=== PATIENT | male | born 1945 | race Caucasian/White ===

== ENCOUNTER 2016-10-15 12:02 | Emergency (ER) | payer OTHER ==
[2016-10-15 12:10] VITALS: RESP 20; TEMP 98.4
[2016-10-15] MEDS ORDERED: LET GEL TOPICAL 1 EA SYR TP ONE ×2 (12:44→12:47)
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
[2016-10-15 14:57] VITALS: BP 128/82; PULSE 74; O2SAT 94
== END 2016-10-15 14:40 | disposition home or self-care (01) ==
DX: S52.501A Unspecified fracture of the lower end of right radius, initial encounter for closed fracture (principal); Z79.82 Long term (current) use of aspirin; Z85.46 Personal history of malignant neoplasm of prostate; V18.2XXA Unspecified pedal cyclist injured in noncollision transport accident in nontraffic accident, initial encounter
CPT/HCPCS: 73110; 99283; A4565

== ENCOUNTER 2017-05-07 08:12 | Emergency (ER) | payer OTHER ==
[2017-05-07 08:20] VITALS: TEMP 97.5
--- NOTE | 2017-05-07 08:30 | EDPHY ---
HPI/HX/ROS/PE/MDM Narrative: CHIEF COMPLAINT: Blood in urine HPI: This patient is a 71 year old male with history of CLL and prostate cancer complaining of hematuria. He feels well, but noted dark blood in his urine this morning after waking. He denies dysuria, frequency, or urgency. He has not had hematuria in the past. No flank pain or fever, no cuts or trauma to his penis. The patient was previously anticoagulated (Plavix) but discontinued this one year ago due to frequent nosebleeds. He now takes 325mg PO Aspirin daily. He denies recent illness, and has no further complaints. REVIEW OF SYSTEMS: Aside from elements discussed in the HPI, a comprehensive 10-point review of systems was reviewed and is negative. PMH: 1. Chronic lymphocytic leukemia 2. History of prostate cancer 2009, treated with radiation 3. History of melanoma, surgical removal 4. TIA (2007) 5. Tonsillectomy 6. Retinal tear. SOCIAL HISTORY: Retired. Lives in [place]. . PHYSICAL EXAM: General:Patient is alert, in no acute distress. ENT:Eyes are normal to inspection. ENT inspection normal. Neck: Normal inspection. Full range of motion. Respiratory:No respiratory distress. Breath sounds normal bilaterally. Cardiovascular: Regular rate and rhythm. Strong peripheral pulses. Normal cap refill. Abdomen:The abdomen is nontender to palpation. There are no peritoneal signs. There are normal bowel sounds. Back: Normal to inspection. No tenderness to palpation. Skin: Normal color. No rash. Warm and dry. Extremities: Normal appearance. Full range of motion. Neuro: Oriented x3. Normal motor function. Normal sensory function. ED Course: 71 year old male with history of CLL and prostate cancer (treated with radiation only) presents for evaluation of hematuria. He is otherwise asymptomatic. Physical exam unremarkable, vitals within normal limits. Plan for labs including CBC, BMP, coag, and UA. UA confirms gross hematuria. Laboratory studies otherwise unremarkable. Elevated WBC of 40,000 is consistent with the patient's CLL and is consistent with his baseline WBC. 09:54 Discussed results with the patient. Plan to discharge home in good condition. He understands he needs to followup with urology within 72 hours for further evaluation. Return precautions discussed. He is comfortable with this plan. MDM: This patient presents with painless hematuria. Workup reveals no signs of acute kidney injury or UTI. The patient has no abdominal or flank pain to suggest kidney stone. Labs are consistent with baseline CLL abnormalities, and there are no signs of acute platelet or coagulation disturbance. The patient has no symptoms of urinary retention. He is appropriate for urgent outpatient workup with Urology. We discussed possibility of developing acute urinary retention and need for return to the ED. - Data Points Laboratory Results: Laboratory Results 05/07/17 08:48 05/07/17 08:48 05/07/17 05/07/17 05/07/17 08:48 08:48 08:48 WBC 41.78 10^3/uL H 10^3/uL (3.80-9.50) RBC 4.22 10^6/uL L 10^6/uL (4.40-6.38) Hgb 15.0 g/dL g/dL (13.7-17.5) Hct 44.3 % % (40.0-51.0) MCV 105.0 fL H fL (81.5-99.8) MCH 35.5 pg H pg (27.9-34.1) MCHC 33.9 g/dL g/dL (32.4-36.7) RDW 13.2 % % (11.5-15.2) Plt Count 125 10^3/uL L 10^3/uL (150-400) MPV 10.1 fL fL (8.7-11.7) Neut % (Auto) 6.7 % L % (39.3-74.2) Lymph % (Auto) 91.4 % H % (15.0-45.0) [place] % (Auto) 1.2 % L % (4.5-13.0) Eos % (Auto) 0.3 % L % (0.6-7.6) Baso % (Auto) 0.3 % % (0.3-1.7) Nucleat RBC Rel Count 0.0 % % (0.0-0.2) Absolute Neuts (auto) 2.82 10^3/uL 10^3/uL (1.70-6.50) Absolute Lymphs (auto) 38.17 10^3/uL H 10^3/uL (1.00-3.00) Absolute Monos (auto) 0.49 10^3/uL 10^3/uL (0.30-0.80) Absolute Eos (auto) 0.13 10^3/uL 10^3/uL (0.03-0.40) Absolute Basos (auto) 0.12 10^3/uL H 10^3/uL (0.02-0.10) Absolute Nucleated RBC 0.00 10^3/uL 10^3/uL (0-0.01) Immature Gran % 0.1 % % (0.0-1.1) Seg Neutrophils % 6 % % Lymphocytes % 91 % % Monocytes % 2 % % Eosinophils % 1 % % Basophils % 1 % % Immature Gran # 0.05 10^3/uL 10^3/uL (0.00-0.10) Absolute Seg Neuts 2.51 10^/uL 10^/uL (1.70-6.50) Absolute Lymphocytes 38.02 10^3/uL H 10^3/uL (1.00-3.00) Absolute Monocytes 0.84 10^3/uL H 10^3/uL (0.30-0.80) Absolute Eosinophils 0.42 10^3/uL H 10^3/uL (0.03-0.40) Absolute Basophils 0.42 10^3/uL H 10^3/uL (0.02-0.10) Differential Comment Atypical Lymphocytes 2+ H Smudge Cells 1+ H Platelet Estimate DECREASED L (ADEQ) Smear Review By Pending PT 14.1 SEC SEC (12.0-15.0) INR 1.07 (0.83-1.16) APTT 27.2 SEC SEC (23.0-38.0) Sodium 143 mEq/L mEq/L (134-144) Potassium 5.0 mEq/L mEq/L (3.5-5.2) Chloride 109 mEq/L mEq/L (97-110) Carbon Dioxide 23 mEq/l mEq/l (22-31) Anion Gap 11 mEq/L mEq/L (8-16) BUN 18 mg/dL mg/dL (7-23) Creatinine 0.8 mg/dL mg/dL (0.7-1.3) Estimated GFR > 60 Glucose 102 mg/dL H mg/dL (70-100) Calcium 9.3 mg/dL mg/dL (8.5-10.4) Urine Color Urine Appearance Urine pH Ur Specific [place] Urine Protein Urine Ketones Urine Blood Urine Nitrate Urine Bilirubin Urine Urobilinogen Ur Leukocyte Esterase Urine RBC Urine WBC Ur Epithelial Cells Urine Mucus Urine Glucose 05/07/17 08:20 WBC RBC Hgb Hct MCV MCH MCHC RDW Plt Count MPV Neut % (Auto) Lymph % (Auto) [place] % (Auto) Eos % (Auto) Baso % (Auto) Nucleat RBC Rel Count Absolute Neuts (auto) Absolute Lymphs (auto) Absolute Monos (auto) Absolute Eos (auto) Absolute Basos (auto) Absolute Nucleated RBC Immature Gran % Seg Neutrophils % Lymphocytes % Monocytes % Eosinophils % Basophils % Immature Gran # Absolute Seg Neuts Absolute Lymphocytes Absolute Monocytes Absolute Eosinophils Absolute Basophils Differential Comment Atypical Lymphocytes Smudge Cells Platelet Estimate Smear Review By PT INR APTT Sodium Potassium Chloride Carbon Dioxide Anion Gap BUN Creatinine Estimated GFR Glucose Calcium Urine Color RED Urine Appearance MODERATELY TURBID Urine pH 6.0 (5.0-7.5) Ur Specific [place] 1.021 (1.002-1.030) Urine Protein 2+ H (NEGATIVE) Urine Ketones NEGATIVE (NEGATIVE) Urine Blood 2+ H (NEGATIVE) Urine Nitrate NEGATIVE (NEGATIVE) Urine Bilirubin NEGATIVE (NEGATIVE) Urine Urobilinogen NEGATIVE EU EU (0.2-1.0) Ur Leukocyte Esterase NEGATIVE (NEGATIVE) Urine RBC 50-182 /hpf H /hpf (0-3) Urine WBC 5-10 /hpf H /hpf (0-3) Ur Epithelial Cells NONE SEEN /lpf /lpf (NONE-1+) Urine Mucus 2+ /lpf H /lpf (NONE-1+) Urine Glucose NEGATIVE (NEGATIVE) General Time Seen by Provider: 05/07/17 08:26 Initial Vital Signs: Initial Vital Signs Temperature (C) 36.4 C 05/07/17 08:18 Heart Rate 67 05/07/17 08:18 Respiratory Rate 17 05/07/17 08:18 Blood Pressure 130/67 H 05/07/17 08:18 O2 Sat (%) 94 05/07/17 08:18 O2 Delivery Mode Room Air Allergies/Adverse Reactions: No Known Allergies Allergy (Verified 05/07/17 08:17) Home Medications: Medication Instructions Recorded Cholecalciferol Vit D3 [Vitamin D3 2,000 units PO DAILY 08/16/15 2000 units (OTC)] Multivitamins [Tab-A-Flako] 1 each PO DAILY 08/16/15 [place]-3 Fatty Acids [Fish Oil] 1,000 mg PO DAILY 08/16/15 Atorvastatin Calcium 02/12/16 Aspirin 325 mg (*) 10/15/16 Tamsulosin HCl 10/15/16 Departure - Departure Disposition: Home, Routine, Self-Care Clinical Impression: Hematuria Condition: Good Instructions: Hematuria (ED) Additional Instructions: 1. Follow up with a urologist within 72 hours. 2. Return to the emergency department for fever, severe pain, inability to urinate or other concerns. Referrals: Crispin Salinas MD [Primary Care Provider] - As per Instructions Frederick Rivera MD [Medical Doctor] - As per Instructions Report Scribed for: Jamie Rothman Report Scribed by: Tana Wiseman Date of Report: 05/07/17 Time of Report: 08:30 Physician Review and Approval Statement: Portions of this note were transcribed by an ED scribe. I personally performed the history, physical exam, and medical decision making; and confirm the accuracy of the information in the transcribed note.
[2017-05-07 08:55] LABS: PLATELET COUNT 125 10^3/uL (150-400)
[2017-05-07 09:12] LABS: INR 1.07 (0.83-1.16); PROTIME(PATIENT) 14.1 SEC (12.0-15.0)
[2017-05-07 10:02] VITALS: BP 117/61; PULSE 58; RESP 18; O2SAT 98
== END 2017-05-07 10:04 | disposition home or self-care (01) ==
DX: R31.9 Hematuria, unspecified (principal); Z79.82 Long term (current) use of aspirin; Z85.46 Personal history of malignant neoplasm of prostate; Z85.6 Personal history of leukemia; Z85.828 Personal history of other malignant neoplasm of skin

== ENCOUNTER → 2017-05-18 | Outpatient (CLI) | payer OTHER ==
[~2017-05-18] MED LIST: IOPAMIDOL (ISOVUE-300) 100 ML BTL ONE
== END ==
LOC: FIMAGING 11:06
PROVIDERS: ATTEND Physician Assistant
DX: R31.0 Gross hematuria (principal); R30.0 Dysuria; K57.90 Diverticulosis of intestine, part unspecified, without perforation or abscess without bleeding; K59.00 Constipation, unspecified
CPT/HCPCS: 74178; Q9967

== ENCOUNTER 2018-01-25 00:22 | Emergency (ER) | payer OTHER ==
[2018-01-25] MEDS ORDERED: LIDOCAINE 2% JELLY 20 ML (UROJECT) ONE (00:39)
--- NOTE | 2018-01-25 00:53 | EDPHY ---
H & P Stated Complaint: HX OF URINE RETENTION AFTER UTI, CATH REMOVED TODAY Time Seen by Provider: 01/25/18 00:46 HPI/ROS: Chief Complaint: Urinary retention HPI: 72-year-old male with a history of CLL, prostate cancer and melanoma. Patient was seen by his urologist 9 days ago and diagnosed with urinary tract infection. Patient was having difficulty urinating in the following day was seen by the urologist and had a catheter placed. This was in place for 5 days. He completed a course of ciprofloxacin for urinary tract infection. Patient had to return to his urologist the same days it was removed had a replaced because he continued to have urinary retention. He had this catheter removed yesterday. He has had some urination since then but noticed in the evening he started having decreased urination and he has been unable to pass urine for the last several hours. He is having increasing discomfort. No fevers or chills. No nausea or vomiting. ROS: 10 systems were reviewed and were negative except those elements noted in the HPI. PMH: Prostate cancer, CLL, melanoma Social History: No smoking, no alcohol, no recreational drug use Family History: non-contributory Physical Exam: Gen: Awake, Alert, No Distress HEENT: Nose: no rhinorrhea Eyes: PERRLA, EOMI Mouth: Moist mucosa Neck: Supple, no JVD Chest: nontender, lungs clear to auscultation Heart: S1, S2 normal, no murmur Abd: Soft, non-tender, no guarding Back: no CVA tenderness, no midline tenderness Ext: no edema, non-tender Skin: no rash Neuro: CN II-XII intact, Sensation grossly intact, Strength 5/5 in bilateral upper and lower extremities - Personal History Current Tetanus/Diphtheria Vaccine: Unsure Current Tetanus Diphtheria and Acellular Pertussis (TDAP): Unsure - Medical/Surgical History Hx Asthma: No Hx Chronic Respiratory Disease: No Hx Diabetes: No Hx Cardiac Disease: No Hx Renal Disease: No Hx Cirrhosis: No Hx Alcoholism: No Hx HIV/AIDS: No Hx Splenectomy or Spleen Trauma: No Other PMH: CLL,TIA, PROSTATE CANCER,RADIATION,TORN RETNA,TONSILS,BACK melanoma, - Social History Smoking Status: Never smoked Constitutional: Initial Vital Signs Temperature (C) 36.9 C 01/25/18 00:23 Heart Rate 89 01/25/18 00:23 Respiratory Rate 18 01/25/18 00:23 Blood Pressure 132/75 H 01/25/18 00:23 O2 Sat (%) 93 01/25/18 00:23 O2 Delivery Mode Room Air Allergies/Adverse Reactions: No Known Allergies Allergy (Verified 01/25/18 00:29) Home Medications: Medication Instructions Recorded Cholecalciferol Vit D3 [Vitamin D3 2,000 units PO DAILY 08/16/15 2000 units (OTC)] Multivitamins [Tab-A-Flako] 1 each PO DAILY 08/16/15 [place]-3 Fatty Acids [Fish Oil] 1,000 mg PO DAILY 08/16/15 Atorvastatin Calcium 02/12/16 Aspirin 325 mg (*) 10/15/16 Tamsulosin HCl 10/15/16 Cephalexin [Keflex (*)] 500 mg PO Q6H #28 cap 01/25/18 Medical Decision Making ED Course/Re-evaluation: 72-year-old with urinary retention. He has 560 mL on bladder scanning. Smart catheter was placed by nursing staff. It flowed well. Urinalysis and urine culture were sent. Plan will be to leave the catheter in place until he follows up with his urologist. Will hold off on antibiotics until urology has had an opportunity to review his results. - Data Points Laboratory Results: 01/25/18 00:55 Urine Color YELLOW Urine Appearance MODERATELY TURBID Urine pH 5.0 (5.0-7.5) Ur Specific [place] 1.014 (1.002-1.030) Urine Protein 1+ H (NEGATIVE) Urine Ketones NEGATIVE (NEGATIVE) Urine Blood 3+ H (NEGATIVE) Urine Nitrate NEGATIVE (NEGATIVE) Urine Bilirubin NEGATIVE (NEGATIVE) Urine Urobilinogen NEGATIVE EU EU (0.2-1.0) Ur Leukocyte Esterase 3+ H (NEGATIVE) Urine RBC 50-182 /hpf H /hpf (0-3) Urine WBC 50-182 /hpf H /hpf (0-3) Ur Epithelial Cells NONE SEEN /lpf /lpf (NONE-1+) Urine Bacteria 1+ /hpf H /hpf (NONE SEEN) Urine Mucus TRACE /lpf /lpf (NONE-1+) Urine Glucose NEGATIVE (NEGATIVE) Medications Given: Discontinued Medications Cephalexin HCl (Keflex) 500 mg PO EDNOW ONE PRN Reason: Protocol Stop: 01/25/18 01:28 Last Admin: 01/25/18 01:33 Dose: 500 mg Departure - Departure Disposition: Home, Routine, Self-Care Clinical Impression: Acute retention of urine, Urinary tract infection Condition: Good Instructions: Urinary Retention in Men (ED), Smart Catheter Placement and Care (ED), Urinary Tract Infection in Men (ED) Additional Instructions: Follow up with your urologist later today for further evaluation. Return to the emergency department for fevers or chills, nausea vomiting, clots or blockage of you're Smart catheter, or for any other concerns. Referrals: America Rodriguez MD [Primary Care Provider] - As per Instructions Yuniel Riggs MD [Medical Doctor] - As per Instructions Prescriptions: Cephalexin [Keflex (*)] 500 mg PO Q6H #28 cap
[2018-01-25] MEDS ORDERED: CEPHALEXIN 500 MG CAP PO ONE (01:27)
[2018-01-25] MEDS ORDERED: CEPHALEXIN 500MG PREPACK#4 BTL TAKEHOME ONE (01:35)
[2018-01-25 01:49] VITALS: BP 134/81
== END 2018-01-25 01:49 | disposition home or self-care (01) ==
PROC: 0T9B70Z Drainage of Bladder with Drainage Device, Via Natural or Artificial Opening (ICD-10-PCS; principal; 2018-01-25)
DX: R33.9 Retention of urine, unspecified (principal); N39.0 Urinary tract infection, site not specified; Z85.46 Personal history of malignant neoplasm of prostate; Z85.820 Personal history of malignant melanoma of skin; Z87.440 Personal history of urinary (tract) infections